=== PATIENT | male | born 1950 | race Caucasian/White ===

== ENCOUNTER 2022-06-17 05:19 | Inpatient (IN) ==
[2022-06-17] MEDS ORDERED: ceFAZolin 2,000 MG/50 ML DUPLEX IV ONE (06:00)
[2022-06-17] MEDS ORDERED: VANCOMYCIN INJ 1,000 MG in SODIUM CHLORIDE 0.9% 250 ML IV ONE ×2 (06:00→18:30)
[2022-06-17] MEDS ORDERED: ACETAMINOPHEN 500 MG TABLET PO ONE (06:14)
[2022-06-17] MEDS ORDERED: GABAPENTIN 400 MG CAPSULE PO ONE (06:14)
[2022-06-17] MEDS ORDERED: FAMOTIDINE 20 MG TABLET PO ONE (06:14)
[2022-06-17] MEDS ORDERED: BUPIVACAINE MPF 0.5% 30 ML VIAL ONE (06:24)
[2022-06-17] MEDS ORDERED: PHENYLEPHRINE DRIP 20 MG/250 ML PREMIX IV ONE (06:24)
[2022-06-17] MEDS ORDERED: LIDOCAINE 1% 5 ML VIAL ONE (06:24)
[2022-06-17] MEDS ORDERED: DEXAMETHASONE 4 MG/1 ML VIAL ONE (06:24)
[2022-06-17] MEDS ORDERED: propofoL 200 MG/20 ML VIAL IV ONE ×2 (06:31→08:07)
[2022-06-17] MEDS ORDERED: TRANEXAMIC ACID 1,000 MG/10 ML VIAL ONE (06:31)
[2022-06-17] MEDS ORDERED: fentaNYL 100 MCG/2 ML VIAL ONE (06:31)
[2022-06-17] MEDS ORDERED: MIDAZOLAM 2 MG/2 ML VIAL ONE ×2 (06:31→07:08)
[2022-06-17] MEDS ORDERED: LIDOCAINE 2% 5 ML VIAL ONE (06:31)
[2022-06-17] MEDS ORDERED: buprenorphine HCL 0.3 MG/ML VIAL ONE (06:34)
[2022-06-17] MEDS: LACTATED RINGERS 1,000 ML IV SCH ×4 (06:37→19:44)
[2022-06-17] MEDS ORDERED: ALBUTEROL 2.5 MG/3 ML NEB RESP TX PRN (07:43)
[2022-06-17] MEDS ORDERED: NON-FORMULARY MEDICATION (Albuterol Sulfate 90 mcg/actuation HFA aerosol inhaler) INH PRN (07:43)
[2022-06-17] MEDS ORDERED: ONDANSETRON 4 MG/2 ML VIAL IV PRN (07:45)
[2022-06-17] MEDS ORDERED: diphenhydrAMINE CAP 25 MG CAPSULE PO PRN (07:45)
[2022-06-17] MEDS ORDERED: MAGNESIUM HYDROXIDE SUSP 30 ML UDCUP PO PRN (07:45)
[2022-06-17] MEDS ORDERED: MORPHINE 2 MG/1 ML SYRINGE IV PRN ×2 (07:45)
[2022-06-17] MEDS ORDERED: ZALEPLON 5 MG CAPSULE PO PRN (07:45)
[2022-06-17] MEDS ORDERED: KETOROLAC 15 MG/1 ML VIAL IV SCH (08:00)
[2022-06-17] MEDS ORDERED: ePHEDrine 50 MG/ML VIAL ONE (08:14)
[2022-06-17] MEDS ORDERED: ONDANSETRON 4 MG/2 ML VIAL ONE (08:25)
[2022-06-17 09:51] LABS: Bacteria,Urine Occasional /HPF (Few); Bilirubin,Urine Negative (Negative); Blood, Urine Moderate mg/dL (Negative); Glucose,Urine (UA) Negative (Negative); Ketones,Urine Negative (Negative); Mucus,Urine Occasional /LPF (Occasional); Nitrite,Urine Negative (Negative); Protein,Urine Negative (Negative); RBC,Urine 10 /HPF (0-4); Squamous Epithelial Cell,Urine Occasional /HPF (0-10); Uric Acid Crystals,Urine Occasional /HPF (<1); Urine Appearance Slightly Hazy (Clear); Urine Color Yellow (Yellow); Urine Specific Gravity 1.019 (1.001-1.035); Urine Urobilinogen < 2.0 eU/dL (<2.0)
[2022-06-17] MEDS ORDERED: FUROSEMIDE 40 MG TABLET PO SCH (10:30)
[2022-06-17] MEDS ORDERED: carvediloL 12.5 MG TABLET PO SCH (10:30)
[2022-06-17] MEDS: INSULIN LISPRO 100 UNIT/ML SUBCUT SCH ×3 (11:13→20:52)
[2022-06-17] MEDS: FUROSEMIDE 40 MG TABLET PO SCH (11:28)
[2022-06-17] MEDS: carvediloL 12.5 MG TABLET PO SCH (11:28)
[2022-06-17] MEDS: DOCUSATE SODIUM 100 MG CAPSULE PO SCH ×2 (11:28→20:53)
[2022-06-17] MEDS: KETOROLAC 15 MG/1 ML VIAL IV SCH ×3 (11:28→23:11)
[2022-06-17] MEDS: MAGNESIUM OXIDE 400 MG TABLET PO SCH (11:28)
[2022-06-17] MEDS: TAMSULOSIN 0.4 MG CAPSULE PO SCH (11:28)
[2022-06-17] MEDS: ceFAZolin 2,000 MG/50 ML DUPLEX IV SCH ×2 (15:07→21:54)
[2022-06-17] MEDS: FERROUS SULFATE 325 MG TABLET PO SCH (17:35)
[2022-06-17] MEDS: metFORMIN 500 MG TABLET PO SCH (17:35)
[2022-06-17] MEDS: SPIRONOLACTONE 25 MG TABLET PO SCH (20:53)
[2022-06-17] MEDS ORDERED: INSULIN GLARGINE 100 UNIT/ML SUBCUT SCH (21:00)
[2022-06-17] MEDS ORDERED: MONTELUKAST 10 MG TABLET PO SCH (21:00)
[2022-06-17] MEDS ORDERED: ROSUVASTATIN 10 MG TABLET PO SCH (21:00)
[2022-06-18] MEDS: LACTATED RINGERS 1,000 ML IV SCH (04:14)
[2022-06-18] MEDS ORDERED: FONDAPARINUX 2.5 MG/0.5 ML SYRINGE SUBCUT SCH (05:00)
[2022-06-18 05:36] LABS: Basophils % 0.5 % (0.0-0.8); Eosinophils # 0.1 10*3/uL (0.0-0.87); Eosinophils % 1.2 % (0.00-10.9); Hematocrit 27.8 VOL% (42.0-52.0); Hemoglobin 8.4 GM/DL (14.0-18.0); Immature Granulocytes % 0.5 %; Immature Granulocytes Absolute 0.02 #; Lymphocytes # 0.3 10*3/uL (1.4-4.0); Lymphocytes % 7.3 % (21.2-54.2); Mean Corpuscular HGB Conc 30.2 GM/DL (32-36); Mean Corpuscular Volume 79.9 FL (87-102); Mean Platelet Volume 10.3 FL (9.6-12.0); Monocytes # 0.3 10*3/uL (0.11-0.8); Monocytes % 7.1 % (1.7-12.7); Neutrophils % 83.4 % (38.7-73.9); Platelet Count 102 T/CUMM (130-400); Red Blood Count 3.48 MC/CUMM (3.8-5.5); Red Cell Distribution Width 17.7 % (9.3-17.3); White Blood Count 4.1 T/CUMM (4-12)
[2022-06-18 05:51] LABS: Calcium 8.1 MG/DL (8.5-10.1); Potassium 4.7 MMOL/L (3.5-5.1)
[2022-06-18] MEDS: ceFAZolin 2,000 MG/50 ML DUPLEX IV SCH (06:09)
[2022-06-18] MEDS: INSULIN LISPRO 100 UNIT/ML SUBCUT SCH ×2 (07:58→11:54)
[2022-06-18] MEDS: metFORMIN 500 MG TABLET PO SCH (08:25)
[2022-06-18] MEDS: MAGNESIUM OXIDE 400 MG TABLET PO SCH (08:25)
[2022-06-18] MEDS: carvediloL 12.5 MG TABLET PO SCH (08:25)
[2022-06-18] MEDS: DOCUSATE SODIUM 100 MG CAPSULE PO SCH (08:25)
[2022-06-18] MEDS: TAMSULOSIN 0.4 MG CAPSULE PO SCH (08:26)
[2022-06-18] MEDS: FERROUS SULFATE 325 MG TABLET PO SCH ×2 (08:26→12:24)
[2022-06-18] MEDS: SPIRONOLACTONE 25 MG TABLET PO SCH (08:26)
[2022-06-18] MEDS: FUROSEMIDE 40 MG TABLET PO SCH (08:27)
[2022-06-18] MEDS ORDERED: LOSARTAN 50 MG TABLET PO SCH (09:00)
[2022-06-18] MEDS ORDERED: Fluticasone Furoate-Vilanterol [Breo Ellipta] 200-25 mcg/dose Bl INH SCH (09:00)
[2022-06-18] MEDS ORDERED: ASPIRIN CHEW 81 MG TABLET PO SCH (09:00)
[2022-06-18] MEDS ORDERED: POTASSIUM CHLORIDE 10 MEQ TABLET PO SCH (09:00)
[2022-06-18] MEDS: PENICILLIN VK 500 MG TABLET PO SCH ×2 (09:30→13:23)
[2022-06-18 10:57] VITALS: BP 144/69
[2022-06-18] MEDS ORDERED: INSULIN GLARGINE 100 UNIT/ML SUBCUT SCH (21:00)
== END 2022-06-18 13:30 | disposition home health service (06) | DRG 468 ==
LOC: N.OR 05:19 → N.SDSINP 05:20 → N.3E 10:18
PROVIDERS: ADMIT Orthopaedic Surgery; ATTEND Orthopaedic Surgery